=== PATIENT | male | born 1985 | race Caucasian/White ===

== ENCOUNTER 2022-07-31 14:06 | Emergency (ER) | payer BC, SELFPAY ==
[2022-07-31 14:07] VITALS: BP 186/91; PULSE 83; RESP 16; TEMP 36.6; O2SAT 100; BMI 27.3
--- NOTE | 2022-07-31 15:01 | EDS_ITS ---
HPI <LUIS Alcaraz - Last Filed: 07/31/22 15:41> History of Present Illness Chief Complaint: Other, Pain/Inj Narrative Narrative: 36-year-old male presents with a throat abnormality that he has difficulty describing. He states for the last several months he has a feeling like he needs to clear his throat. He has no pain and no difficulty breathing, swallowing or eating. Last night he states this weird type feeling in his throat woke him from sleep. He sleeps on his stomach and after he turned onto his back it improved. There was no associated choking or difficulty breathing. He has no chest pain or shortness of breath. He has no heartburn or r egurgitation. Right now he has no symptoms but when he went to urgent care they sent him to the ED for evaluation. PFSH <LUIS Alcaraz - Last Filed: 07/31/22 15:41> PFSH Medical History no medical history Allergy/AdvReac Type Severity Reaction Status Date / Time No Known Allergies Allergy Verified 07/31/22 14:09 Social History Smoking Status: Never smoker ROS <LUIS Alcaraz - Last Filed: 07/31/22 15:41> ROS ED ROS Narrative Constitutional: Negative for fever, chills, malaise. Eyes: Negative for visual change. ENT: Negative for sore throat, ear pain, rhinorrhea. CVS: Negative for palpitations, chest pain, syncope. Respiratory: Negative for shortness of breath, cough, orthopnea. GI: Negative for abdominal pain, nausea, vomiting. : Negative for dysuria, hematuria or frequency. Neuro: Negative for headache, motor/sensory dysfunction. Skin: Negative for rash, abscess, or wound. Musc: Negative for joint pain, swelling, trauma. Heme: Negative for easy bruising, bleeding, lymphadenopathy. EXAM <LUIS Alcaraz Last Filed: 07/31/22 15:41> Physical Exam Narrative Exam Narrative: CONST: Patient sitting in no acute distress. EYES: Normal inspection. ENT: Normal oropharynx and midline uvula, moist mucous membranes. Siublingual space is soft, no trismus or tongue elevation. NECK: Normal inspection. Trachea midline, no masses or lymphadenopathy. RESP: No respiratory distress, CTAB. CVS: Regular rate and rhythm, no murmur, no gallop. SKIN: Color normal, no rash, warm, dry, intact. EXTREMITIES: Normal appearance, no pedal edema. NEURO: Oriented x4. PSYCH: Normal affect. Const Vital Signs: 07/31/22 14:07 07/31/22 15:14 Temperature 97.9 F Temperature Source Temporal Pulse Rate 83 Respiratory Rate 16 Respiratory Effort Normal Non-Labored Blood Pressure 186/91 H Blood Pressure Mean 122 Pulse Ox 100 Oxygen Delivery Method Room Air <Steve Odonnell MD - Last Filed: 07/31/22 21:01> Physical Exam Const Vital Signs: 07/31/22 14:07 07/31/22 15:14 Temperature 97.9 F Temperature Source Temporal Pulse Rate 83 Respiratory Rate 16 Respiratory Effort Normal Non-Labored Blood Pressure 186/91 H Blood Pressure Mean 122 Pulse Ox 100 Oxygen Delivery Method Room Air [facility] <LUIS Alcaraz - Last Filed: 07/31/22 15:41> [facility] Narrative Medical decision making narrative: Patient has some throat discomfort over several months but it seemed worse last night. He has no difficulty swallowing or breathing and no choking episodes. He appears well nontoxic. BP 186/91 which improved to 139/93 without intervention and he has otherwise normal vital signs. Airway is patent, trachea midline, no stridor or wheezing. Cervical x-ray showed no acute process. He will be referred to ENT for further evaluation and was discharged in stable con dition. Radiography Diagnostic Testing: Clinical Impression(s) from Imaging Studies Soft Tissue Neck X-Ray 07/31/22 15:19 IMPRESSION: Negative neck x-rays. Electronically Signed: Steve Magana MD at 15:28 [facility] , ED attending interpretation of soft tissue neck films show patent airway with no acute abnormalities. <Steve Odonnell MD - Last Filed: 07/31/22 21:01> [facility] Narrative Medical decision making narrative: Patient has some throat discomfort over several months but it seemed worse last night. He has no difficulty swallowing or breathing and no choking episodes. He appears well nontoxic. BP 186/91 which improved to 139/93 without intervention and he has otherwise normal vital signs. Airway is patent, trachea midline, no stridor or wheezing. Cervical x-ray interpreted by ED physician showed no acute process. He will be referred to ENT for further evaluation and was discharged in stable condition. I have personally performed a face to face assessment of the patient and have reviewed the FOUZIA Note. I performed a substantive portion of the visit including all aspects of the following. My melendez findings include: History is months of throat tightness, throat clearing, worse last evening Exam is afebrile. Vital signs noted. Airway patent. No drooling or trismus. Medical Decision Making check x-rays. X-rays interpreted by myself shows no acute process, airway patent. Follow-up ENT. Discharge. Other additions or changes: [None] Radiography Diagnostic Testing: Clinical Impression(s) from Imaging Studies Soft Tissue Neck X-Ray 07/31/22 15:19 IMPRESSION: Negative neck x-rays. Electronically Signed: Steve Magana MD at 15:28 EST Reading Location ID and State: [address] [place] [address] , Service support , Discharge Plan Triage Chief Complaint: Other, Pain/Inj ED Midlevel Provider: Diana Ochoa ED Provider: Steve Odonnell Dx/Rx/DC Orders Clinical Impression: Throat discomfort Primary Care Provider: Care Physician,No Primary Referrals: Wagner Gray MD [Med Staff - Active Staff] - NOT,DEFINED [Non-Staff] - Activity Restrictions/Additional Instructions: Your x-rays of the neck look normal. Please call the ENT doctor so they can evaluate your throat discomfort. Disposition Disposition: Home, Self Care Discharge Date/Time: 07/31/22 15:49
--- NOTE | 2022-07-31 15:19 | RAD_ITS ---
EXAM: XR SOFT TISSUE NECK CLINICAL INDICATION: throat discomfort TECHNIQUE: Frontal and lateral views of the soft tissues of the neck. This report was created using [employer] report generation technology. COMPARISON: None. FINDINGS: AIRWAY: Unremarkable. Grossly patent. SOFT TISSUES: Unremarkable. No radiopaque foreign body. No pathologic thickening or enlargement of the epiglottis. RAD/Neck for Soft Tissue IMPRESSION: Negative neck x-rays. Electronically Signed: Steve Magana MD at 15:28 EST ,
== END 2022-07-31 15:49 | disposition home or self-care (01) ==
PROVIDERS: Emergency Provider Emergency Medicine; Visit Provider Emergency Medicine
DX: R07.0 Pain in throat (principal)
CPT/HCPCS: 70360; 99282